=== PATIENT | female | born 1995 | race Caucasian/White ===

== ENCOUNTER 2018-07-27 15:37 | Emergency (ER) | payer OTHER, SELFPAY ==
[2018-07-27 15:44] VITALS: BP 129/82; PULSE 84; RESP 14; TEMP 36.7; O2SAT 100
[2018-07-27 17:27] VITALS: BP 103/67; PULSE 78; RESP 16; O2SAT 98
--- NOTE | 2018-08-10 08:13 | ED_ITS ---
HPI - Dizziness General Chief Complaint: Dizziness Stated Complaint: vertigo Time Seen by Provider: 07/27/18 16:25 Source: patient Mode of arrival: ambulatory Limitations: no limitations History of Present Illness HPI Narrative: Patient presents emergency department complaining of dizziness and lightheadedness. She states that she has been having the symptoms for some time, and that she has been following with her primary doctor about this. In fact, she is scheduled to see her doctor again in the next few days. Patient denies any other specific neurologic symptoms. No weakness on 1 side or the other. No numbness or tingling. Patient does have a history of anxiety, and states that she does get anxious when the symptoms come on. She denies any chest pain or shortness of breath with symptoms. No vomiting, but patient occasionally gets nauseated. No other complaints at this time. She states that the vertigo is sometimes related to movement, but not always. Patient states she is not currently having any symptoms. She states she is normally on clonazepam, and propranolol, but has run out of her medications. She is mainly here to see if she can get a refill. Related Data Home Medications Medication Instructions Recorded Confirmed clonazepam 0.5 mg PO DAILY PRN 07/27/18 07/27/18 propranolol 20 - 40 mg PO BID PRN 07/27/18 07/27/18 Allergies Allergy/AdvReac Type Severity Reaction Status Date / Time No Known Drug Allergies Allergy Verified 07/27/18 15:47 Review of Systems Constitutional Denies chills, Denies fever(s), Denies lethargy and Denies weakness Eyes Denies change in vision, Denies eye discharge, Denies irritation and Denies loss of vision ENT Ears, Nose, Mouth, and Throat: Denies change in voice, Reports dizziness, Denies neck pain and Denies sore throat Cardiovascular Denies chest pain, Denies irregular heart rhythm, Denies lightheadedness, Denies palpitations, Denies dyspnea, Denies dyspnea on exertion and Denies orthopnea Respiratory Denies cough, Denies dyspnea, Denies dyspnea on exertion and Denies wheezing Gastrointestinal Gastrointestinal: Denies abdominal pain, Denies change in bowel habits, Denies diarrhea, Denies nausea and Denies vomiting Genitourinary Denies hematuria, Denies flank pain, Denies urinary incontinence and Denies urinary urgency Musculoskeletal Denies neck pain Integumentary/Breasts Denies pruritus, Denies erythema, Denies rash and Denies wounds Neurologic Denies confusion, Reports dizziness, Denies loss of vision and Denies weakness Psychiatric Denies anxiety, Denies confusion, Denies depression, Denies homicidal ideation and Denies suicidal ideation Endocrine Denies palpitations Hematologic/Lymphatic Denies easy bruising Allergic/Immunologic Denies wheezing [facility] Medical History Anxiety (Acute) Vertigo (Acute) Social History Smoking Status: Never smoker Social History Smoking Status: Never smoker Exam Initial Vital Signs Initial Vital Signs: Vital Signs Temperature 98.1 F 07/27/18 15:44 Pulse Rate 84 07/27/18 15:44 Respiratory Rate 14 07/27/18 15:44 Blood Pressure 129/82 07/27/18 15:44 Pulse Oximetry 100 07/27/18 15:44 Const General: cooperative and well developed Nutritional Appearance: well nourished Orientation: alert, awake, oriented x3 and not confused HENUT Head: normocephalic and atraumatic Ears: external ears normal Nose: external nose normal and No nasal discharge Face and sinus: face symmetric and No dry mucous membranes Mouth: oral mucosae normal and moist mucous membranes Teeth and gingiva: dentition normal Eyes General: appearance normal, both eyes and all related structures Eyelids: eyelids normal Conjunctivae: conjunctivae normal Sclera: sclerae normal Pupils: PERRL EOM: EOM intact bilaterally Neck Neck: normal visual inspection, trachea midline, No lymphadenopathy, No midline deformity and No JVD Lymphatic: No lymphedema Chest Chest: normal inspection of the chest Resp Effort & Inspection: normal respiratory effort, able to speak in complete sentences, no respiratory distress and no use of accessory muscles Auscultation: clear to auscultation bilaterally, no rales, no rhonchi and no wheezes Cardio Rate: regular rate Rhythm: regular rhythm Heart Sounds: no click, no gallops, no murmurs and no rubs Pulses: normal peripheral pulses GI Inspection: non-distended Palpation: soft, no hepatosplenomegaly, No guarding, No pulsatile mass and No tender Auscultation: normal bowel sounds Back/Spine/Pelvis Back: No CVA tenderness Cervical Spine: cervical ROM normal and No pain with cervical ROM Thoracic/Lumbar Spine: thoracic and lumbar spine normal to inspection Skin General: no rashes or lesions noted, No jaundice and No petechiae Neuro General: alert, oriented x3, gait normal and no focal motor deficits Speech: speech normal Extrem General: full ROM, no clubbing, cyanosis or edema, no pedal edema and no calf tenderness Psych Appearance: well kempt Mental Status: mental status grossly normal Attitude: cooperative Thought Content: normal and suicidality Judgment: judgment good Course Course Narrative: Patient was stable in the emergency department and symptoms were minimal at that point. I did agree to refill the patient's prescriptions, but I have advised her to keep her appointment with her doctor, she is scheduled to do. [facility] - Dizziness Medical Records Attestation: I reviewed the patient's medical records. Discharge Plan Departure Patient Disposition: Home Clinical Impression: Vertigo Discharge Date/Time: 07/27/18 17:29 Interventions: ED Discharge Assessment Last Done: 07/27/18 17:27 Instructions: DI for Vertigo Activity Restrictions/Additional Instructions: Please follow-up with your doctor as you are scheduled to do. Prescriptions: No Action clonazepam 0.5 mg tablet 0.5 mg PO DAILY PRN (Reason: severe anxiety) RF: 0 propranolol 20 mg tablet 20 - 40 mg PO BID PRN (Reason: Anxiety) RF: 0
== END 2018-07-27 17:29 | disposition home or self-care (01) ==
PROVIDERS: Emergency Provider Emergency Medicine
DX: R42 Dizziness and giddiness (principal)
CPT/HCPCS: 99282

== ENCOUNTER → 2018-08-21 08:56 | Outpatient (CLI) | payer OTHER, SELFPAY ==
--- NOTE | 2018-08-21 | DI.MRI.S_ITS ---
PROCEDURE: MR KNEE LT WO CON INDICATIONS: PAIN IN LEFT KNEE TECHNIQUE: Noncontrast sagittal PD fast spin echo and T2 fast spin echo with fat saturation, sagittal 3-D FLASH with fat saturation; coronal T1 spin echo and PD fast spin echo with fat saturation, and axial PD fast spin echo with fat saturation through the knee. COMPARISON: None. FINDINGS: Image quality: Excellent. Menisci: The medial and lateral menisci demonstrate normal morphology and internal signal. The meniscal root ligaments appear intact. Cruciate ligaments: The anterior and posterior cruciate ligaments appear intact. Medial structures: The medial collateral ligament appears intact. The posterior oblique ligament, semimembranosus tendon insertions, oblique popliteal ligament, and meniscocapsular junction appear intact. Visualized portions of the pes anserinus tendons appear normal. No abnormal bursal fluid. Lateral structures: The lateral collateral ligament, long and short heads of the biceps femoris tendon appear intact. The popliteus tendon appears normal; the popliteofibular ligament appears intact. The posterosuperior and anteroinferior popliteomeniscal fascicles appear intact. The arcuate and fabellofibular ligaments appear intact, on either side of the lateral inferior geniculate artery. Iliotibial band appears normal. Anterior structures: The quadriceps and patellar tendons appear intact. Patellar alignment is mildly abnormal, with note made of a shallow trochlear groove and lateral subluxation of the patella across the lateral facet of the patellofemoral joint. There is mild thinning of the articular cartilage both at the patellar and femoral margins of the lateral facet, and a slight degree of edema is seen deep to the articular cortex at the lateral facet (series 5 image 12).. No femoral trochlear dysplasia or ventral trochlear prominence. No edema in the infrapatellar fat pad. Bones and cartilage: No bone marrow contusions or fractures. The cartilage of the medial and lateral femorotibial compartments, as well as the patellofemoral compartment, appears normal in thickness. Joint space: There is a mild excess of knee joint fluid. No Miller's cyst. Normal appearing synovial plicae are incidentally noted. IMPRESSION: Mild joint effusion without intra-articular loose body. No ligamentous injury or meniscal tear is found. There is a shallow trochlear groove with mild lateral subluxation of the patella across the lateral facet of the patellofemoral joint, with a mild degree of associated thinning of the articular cartilage and slight edema within the medullary space deep to the patellar lateral facet articular cortex. Elsewhere the study appears normal. Dictated by: Thomas Mortensen M.D. on 08/21/2018 at 12:07 Approved by: Thomas Mortensen M.D. on 08/21/2018 at 14:07
== END ==
PROVIDERS: PCP Family Medicine; Visit Provider Family Medicine
DX: M25.562 Pain in left knee (principal); M25.462 Effusion, left knee
CPT/HCPCS: 73721

== ENCOUNTER 2021-10-01 06:36 | Emergency (ER) | payer BC, SELFPAY ==
[2021-10-01 06:45] VITALS: BP 132/68; PULSE 82; RESP 16; TEMP 36.9; O2SAT 100
--- NOTE | 2021-10-01 07:11 | ED.CHESTPAIN ---
HPI - Chest Pain General Chief Complaint: Chest Pain Stated Complaint: Chest problems Time Seen by Provider: 10/01/21 06:57 Source: patient Mode of arrival: Ambulatory Limitations: no limitations History of Present Illness HPI narrative: Patient is a 25-year-old female who is here for evaluation of approximately 24 hours of right-sided rib discomfort. There was no specific trauma. She states that she frequently has issues with a rib coming out of place. She states she is normally able to pop it back in place but she has been unable to do so. Yesterday it was hurting so bad that she was having problems taking a deep breath. It has improved somewhat. No prior surgeries to her chest. Related Data Home Medications Medication Instructions Recorded Confirmed clonazepam 0.5 mg tablet 0.5 mg PO DAILY PRN 07/27/18 07/27/18 propranolol 20 mg tablet 20 - 40 mg PO BID PRN 07/27/18 07/27/18 Allergies Allergy/AdvReac Type Severity Reaction Status Date / Time No Known Drug Allergies Allergy Verified 07/27/18 15:47 Review of Systems Constitutional Constitutional: Denies fever(s) Cardiovascular Cardiovascular: Reports as per HPI and Reports system reviewed and no additional complaints, except as documented Respiratory Respiratory: Reports as per HPI and Reports system reviewed and no additional complaints, except as documented Musculoskeletal Musculoskeletal: Reports system reviewed and no additional complaints, except as documented and Reports as per HPI Patient History Medical History Anxiety Vertigo Social History Smoking Status: Never smoker Smoking Status: Never smoker alcohol intake frequency: 0-2 drinks per day Substance Use Type: does not use Exam Initial Vital Signs Initial Vital Signs: Vital Signs Temperature 98.5 F 10/01/21 06:45 Pulse Rate 82 10/01/21 06:45 Respiratory Rate 16 10/01/21 06:45 Blood Pressure 132/68 10/01/21 06:45 Pulse Oximetry 100 10/01/21 06:45 HENMT Head: normal to inspection and normocephalic Chest Other: There is tenderness to palpation over the right-sided 3rd rib where it intersects with the sternum. There is no specific deformity felt. Resp Effort & Inspection: normal respiratory effort and able to speak in complete sentences Auscultation: clear to auscultation bilaterally Cardio Rate: regular rate Rhythm: regular rhythm Neuro General: patient alert, patient awake and moves all extremities Extrem General: normal to inspection and capillary refill normal Course Vital Signs Vital signs: Vital Signs - 8 hr 10/01/21 06:45 Temperature 98.5 F Pulse Rate 82 Respiratory Rate 16 Blood Pressure 132/68 Pulse Oximetry 100 MDM - Chest Pain MDM Narrative Medical decision making narrative: There was no specific trauma that caused her symptoms. She does seem to be tender over the isolated area on the right 3rd rib order intersects with the sternum. No respiratory distress. I do not feel that an x-ray would be helpful in this situation is I have low suspicion for any surgical issues nor rib fracture. I did inform her that a chiropractor would most likely be the individual most capable of helping her in the situation. Informed her that she can take anti-inflammatories as needed. She was given return precautions. She expressed understanding and agreement. Discharge Plan Departure Patient Disposition: Home Clinical Impression: Rib pain on right side Activity Restrictions/Additional Instructions: I do recommend that you try to make contact with a local chiropractor as he/she would be the individual most capable of helping you. You can continue to take anti-inflammatories such as Tylenol/ibuprofen. Return to the emergency department for any new or worsening symptoms. Prescriptions: No Action clonazepam 0.5 mg tablet 0.5 mg PO DAILY PRN (Reason: severe anxiety) 0RF Label Comments: TK 1 T PO QD PRF SEVERE ANXIETY propranolol 20 mg tablet 20 - 40 mg PO BID PRN (Reason: Anxiety) 0RF Label Comments: TK 1 TO 2 TS PO UP TO BID PRA patient states stopped since dizziness started Referrals: Desi Lao MD [Primary Care Provider] -
[2021-10-01 07:32] VITALS: PULSE 74; RESP 16; O2SAT 97
== END 2021-10-01 07:34 | disposition home or self-care (01) ==
PROVIDERS: Emergency Provider Emergency Medicine; PCP Family Medicine
DX: R07.81 Pleurodynia (principal)
CPT/HCPCS: 99281